=== PATIENT | female | born 1985 | race American Indian/Alaskan Native ===

== ENCOUNTER 2018-12-26 09:36 | Inpatient (IN) | payer BC, MEDICAID ==
[2018-12-26] MEDS ORDERED: LACTATED RINGERS 1,000 ML ONE (10:27)
[2018-12-26] MEDS ORDERED: REGLAN IV ONE (10:41)
[2018-12-26] MEDS ORDERED: PEPCID IV ONE (10:41)
[2018-12-26] MEDS ORDERED: BICITRA PO ONE (10:41)
[2018-12-26 10:55] LABS: Basophils % (Auto) 0.4 % (0.0-1.8); Eosinophils % (Auto) 0.3 % (0.0-4.3); Hematocrit 32.1 % (30.3-42.9); Hemoglobin 10.4 gm/dl (10.1-14.3); Lymphocytes # (Auto) 1.6 K/mm3 (1.2-5.4); Lymphocytes % (Auto) 14.9 % (13.4-35.0); Mean Corpuscular HGB Conc 32 % (30-34); Mean Corpuscular Volume 75 fl (79-97); Monocytes # (Auto) 0.8 K/mm3 (0.0-0.8); Monocytes % (Auto) 6.9 % (0.0-7.3); Platelet Count 400 K/mm3 (140-440); Red Blood Count 4.27 M/mm3 (3.65-5.03)
[2018-12-26 10:56] LABS: Red Cell Distribution Width 20.1 % (13.2-15.2)
[2018-12-26] MEDS ORDERED: PITOCin/NS 20 UNIT/1000ML DRIP 20 UNITS/1,000 ML BAG IV SCH ×3 (11:00→14:00)
[2018-12-26] MEDS ORDERED: ANCEF/STERILE WATER 2 GM/20 ML 2 GM/20 ML SYRINGE IV NR (11:00)
[2018-12-26] MEDS ORDERED: LACTATED RINGERS 1,000 ML IV SCH (11:00)
[2018-12-26] MEDS ORDERED: NARCAN 2 MG/2 ML IV PRN (11:34)
--- NOTE | 2018-12-26 11:45 | Anesthesia Consultation ---
Anesthesia Consult and Med Hx Date of service: 12/26/18 - Airway Anesthetic Teeth Evaluation: Good ROM Head & Neck: Adequate Mental/Hyoid Distance: Adequate Mallampati Class: Class II Intubation Access Assessment: Good - Pulmonary Exam CTA: Yes - Cardiac Exam Cardiac Exam: RRR - Pre-Operative Health Status ASA Pre-Surgery Classification: ASA2 Proposed Anesthetic Plan: Spinal - Pulmonary Hx Asthma: No COPD: No Hx Pneumonia: No - Cardiovascular System Hx Hypertension: No - Central Nervous System Hx Seizures: No Hx Psychiatric Problems: No - Endocrine Hx Renal Disease: No Hx End Stage Renal Disease: No Hx Hypothyroidism: No Hx Hyperthyroidism: No - Hematic Hx Anemia: Yes (hx) Hx Sickle Cell Disease: No - Other Systems Hx Alcohol Use: No
--- NOTE | 2018-12-26 11:46 | Anesthesia Day of Surgery ---
Anesthesia Day of Surgery - Day of Surgery Patient Examined: Yes Patient H&P Reviewed: Yes Patient is NPO: Yes
[2018-12-26] MEDS ORDERED: ZOFRAN ONE (11:57)
[2018-12-26] MEDS ORDERED: DEXMEDETOMIDINE IV ONE (11:57)
[2018-12-26] MEDS ORDERED: fentaNYL-BUPIV 2 MCG/ML-0.125% 200 MCG/100 ML BAG EPIDURAL SCH (12:00)
[2018-12-26] MEDS ORDERED: ANCEF/STERILE WATER 2 GM/20 ML IV ONE (12:33)
[2018-12-26] MEDS ORDERED: BENADRYL ONE (12:59)
[2018-12-26] MEDS ORDERED: TORADOL ONE (12:59)
[2018-12-26] MEDS ORDERED: DILAUDID ONE (13:08)
[2018-12-26] MEDS ORDERED: TUCKS PAD TP PRN ×2 (13:58→13:59)
[2018-12-26] MEDS ORDERED: NARCAN 0.4 MG/1 ML IV PRN ×2 (13:58→13:59)
[2018-12-26] MEDS ORDERED: LANSINOH TP PRN ×2 (13:58→13:59)
[2018-12-26] MEDS ORDERED: ANUCORT-HC PR PRN (13:59)
[2018-12-26] MEDS ORDERED: MYLICON PO PRN (13:59)
[2018-12-26] MEDS ORDERED: MORPHINE IV PRN (13:59)
[2018-12-26] MEDS ORDERED: TYLENOL PO PRN (13:59)
[2018-12-26] MEDS ORDERED: ZOFRAN IV PRN (13:59)
[2018-12-26] MEDS ORDERED: MILK OF MAGNESIA PO PRN (13:59)
[2018-12-26] MEDS ORDERED: PHENERGAN PR PRN (13:59)
[2018-12-26] MEDS ORDERED: SENOKOT PO PRN (13:59)
[2018-12-26] MEDS ORDERED: D5LR 1,000 ML IV SCH (14:00)
[2018-12-26] MEDS ORDERED: SODIUM CHLORIDE FLUSH SYRINGE 10 ML IV SCH (14:00)
--- NOTE | 2018-12-26 14:11 | History and Physical Report ---
History of Present Illness Date of examination: 12/26/18 Date of admission: 12/26/18 09:49 Chief complaint: scheduled repeat csec and salpingectomy History of present illness: 33 yo EDC 01/14/19 here for repeat csec. She has a hx of newly diagnosed DM. Patient has hx of previous csec for twins. HX of GBS + Past History Past Medical History: no pertinent history Past Surgical History: section (x1) Family/Genetic History: diabetes, hypertension, cancer (prostate) Social history: single. denies: smoking, alcohol abuse, prescription drug abuse - Obstetrical History Expected Date of Delivery: 01/14/19 Actual Gestation: 37 Week(s) 2 Day(s) : 3 Para: 2 Hx # Term Pregnancies: 2 Number of Pregnancies: 0 Spontaneous Abortions: 0 Induced : 0 Number of Living Children: 3 Medications and Allergies Allergies Allergy/AdvReac Type Severity Reaction Status Date / Time No Known Allergies Allergy Verified 05/14/18 13:31 Home Medications Medication Instructions Recorded Confirmed Last Taken Type Amoxicillin [Amoxicillin TAB] 875 mg PO BID 10 Days #20 tablet 06/14/18 Unknown Rx Ferrous Sulfate [Feosol 325 MG tab] 325 mg PO BID #30 tablet 12/26/18 Unknown Rx Ibuprofen [Motrin] 600 mg PO Q8H PRN #60 tablet 12/26/18 Unknown Rx oxyCODONE /ACETAMINOPHEN [Percocet 1 tab PO Q6HR PRN #30 tablet 12/26/18 Unknown Rx 5/325] Active Meds: Active Medications Acetaminophen (Tylenol) 650 mg PO Q4H PRN PRN Reason: Fever >100.5/[place] Acetaminophen/Hydrocodone Bitart ([place] 5/325) each PO Q6H PRN PRN Reason: Pain, Moderate (4-6) Diphtheria/Tetanus/Acell Pertussis (Boostrix) 0.5 ml IM .ONCE ONE Stop: 12/27/18 14:01 Ephedrine Sulfate (Ephedrine Sulfate) 10 mg IV Q2M PRN PRN Reason: Hypotension Ferrous Sulfate (Feosol) 325 mg PO QDAY MO Hydrocortisone Acetate (Anucort-Hc) 25 mg OK BID PRN PRN Reason: Hemorrhoids Oxytocin/Sodium Chloride (Pitocin/Ns 20 Unit/1000ml Drip) 20 units in 1,000 mls @ 0 mls/hr IV TITR MO Lactated Ringer's (Lactated Ringers) 1,000 mls @ 2,250 mls/hr IV PREOP MO Stop: 12/27/18 11:27 Cefazolin Sodium (Ancef/Sterile Water 2 Gm/20 Ml) 2 gm in 20 mls @ 80 mls/hr IV PREOP NR; Protocol Stop: 12/26/18 23:00 Fentanyl/Bupivacaine/Sodium Chlor (Fentanyl-Bupiv 2 Mcg/Ml-0.125%) 200 mcg in 100 mls @ 12 mls/hr EPIDURAL TITR MO; Protocol Oxytocin/Sodium Chloride (Pitocin/Ns 20 Unit/1000ml Drip) 20 units in 1,000 mls @ 250 mls/hr IV DIRECT MO Oxytocin/Sodium Chloride (Pitocin/Ns 20 Unit/1000ml Drip) 20 units in 1,000 mls @ 250 mls/hr IV DIRECT MO Dextrose/Lactated Ringer's (D5lr) 1,000 mls @ 125 mls/hr IV DIRECT MO Ibuprofen (Ibuprofen) 800 mg PO Q6H PRN PRN Reason: Pain, Mild (1-3) Ketorolac Tromethamine (Toradol) 30 mg IV Q6H PRN PRN Reason: Pain, Moderate (4-6) Stop: 12/31/18 13:58 Magnesium Hydroxide (Milk Of Magnesia) 30 ml PO QHS PRN PRN Reason: Constip Unrelieved By Senna Measles/Mumps/Rubella Vaccine Live (M-M-R Ii Vaccine) 0.5 ml SUB-Q .ONCE ONE Stop: 12/27/18 14:01 Morphine Sulfate (Morphine) 2 mg IV Q4H PRN PRN Reason: Pain, Moderate (4-6) Multi-Ingredient Ointment (Lansinoh) 1 applic TP PRN PRN PRN Reason: dryness/cracking Multi-Ingredient Ointment (Lansinoh) 1 applic TP PRN PRN PRN Reason: dryness/cracking Multivitamins/Iron/Calcium ( Vitamin) 1 each PO QDAY MO Naloxone HCl (Narcan 2 Mg/2 Ml) 0.2 mg IV Q5M PRN PRN Reason: Respiratory sedation Naloxone HCl (Narcan 0.4 Mg/1 Ml) 0.1 mg IV Q2MIN PRN PRN Reason: Res Rate </= 8 or 02 SAT < 92% Naloxone HCl (Narcan 0.4 Mg/1 Ml) 0.1 mg IV Q2MIN PRN PRN Reason: Res Rate </= 8 or 02 SAT < 92% Ondansetron HCl (Zofran) 4 mg IV Q8H PRN PRN Reason: Nausea And Vomiting Oxycodone/Acetaminophen (Percocet 5/325) 2 tab PO Q6H PRN PRN Reason: Pain, Moderate (4-6) Promethazine HCl (Phenergan) 25 mg OK Q6H PRN PRN Reason: N/V IF NPO AND NO IV ACCESS Senna (Senokot) 17.2 mg PO QHS PRN PRN Reason: Constipation Simethicone (Mylicon) 80 mg PO Q6H PRN PRN Reason: Gas pain Sodium Chloride (Sodium Chloride Flush Syringe 10 Ml) 10 ml IV PRN NR Witch Nohemi/Glycerin (Tucks Pad) 1 each TP PRN PRN PRN Reason: Hemorrhoids/cleansing/soothing Witch Nohemi/Glycerin (Tucks Pad) 1 each TP PRN PRN PRN Reason: Hemorrhoids/cleansing/soothing Review of Systems All systems: negative - Vital Signs Vital signs: Vital Signs Temp Pulse Resp BP 98.6 F 100 H 20 112/72 12/26/18 10:10 12/26/18 10:10 12/26/18 10:10 12/26/18 10:10 Temp Pulse Resp BP Pulse Ox 98.6 F 100 H 20 112/72 12/26/18 10:10 12/26/18 10:10 12/26/18 10:10 12/26/18 10:10 - Physical Exam Breasts: Positive: normal Cardiovascular: Regular rate, Normal S1 Lungs: Positive: Clear to auscultation, Normal air movement Abdomen: Positive: normal appearance, soft, normal bowel sounds. Negative: distention, tenderness, guarding Genitourinary (Female): Positive: normal external genitalia, normal perenium Vagina: Positive: normal moisture Uterus: Positive: normal size, normal contour Anus/Rectum: Positive: normal perianal skin Extremities: Positive: normal Deep Tendon Reflex Grade: Normal +2 - Obstetrical FHR: category 1 Results Result Diagrams: 12/26/18 10:15 Abnormal lab results 12/26/18 Range/Units 10:15 WBC 11.1 H (4.5-11.0) K/mm3 MCV 75 L (79-97) fl MCH 24 L (28-32) pg RDW 20.1 H (13.2-15.2) % Seg Neutrophils % 77.5 H (40.0-70.0) % Seg Neutrophils # 8.6 H (1.8-7.7) K/mm3 All other labs normal. Assessment and Plan A/P Term HX of DM on insulin GBS + Desires permanent sterilization discussed r/b/a which include bleeding infection, damage to pelvic and non pelvic organs, risk of hysterectomy risk of Prepare for repeat csec/ salpingectomy all questions answered
--- NOTE | 2018-12-26 14:17 | Operative Report ---
Operative Report Operative Report: DATE : 12/26/18 PREOPERATIVE DIAGNOSES: 1. Intrauterine at term. 2. Desires permanent sterilization 3. Previous POSTOPERATIVE DIAGNOSES: 1-3 CHERYL SURGEON: Ruthie Linn MD PROCEDURE PERFORMED: Repeat low-transverse section.and Salpingectomy ANESTHESIA: Epidural. ESTIMATED BLOOD LOSS: 900 mL. COMPLICATIONS: None. FINDINGS: Male infant in cephalic presentation, Breech position, weight 7pounds 4 ounces. Apgars were 8 at 1 minute and 9 at 5 minutes. Normal uterus, tubes, and ovaries were noted. INDICATIONS: The patient is a 33-year-old 3, para 2003 female, who presented to labor and delivery for scheduled csearean and tubal ligation The procedure was described to the patient in detail including possible risks of bleeding, infection, injury to surrounding organs, and possible need for further surgery. Informed consent was obtained prior to proceeding with the procedure. The patient was taken to the operating room where epidural anesthesia was found to be adequate. The patient was prepped and draped in the usual sterile fashion in the dorsal supine position with a left-solares tilt. A Pfannenstiel skin incision was made with the scalpel and carried through to the underlying layer of fascia using the Bovie. The fascia was incised in the midline and extended laterally using Nur scissors. Adin clamps were used to elevate the superior aspect of the fascial incision, which was elevated, and the underlying rectus muscles were dissected off bluntly and using Nur scissors. Attention was then turned to the inferior aspect of the fascial incision, which in similar fashion was grasped with Adin clamps, elevated, and the underlying rectus muscles were dissected off bluntly and using Nur scissors. The rectus muscles were dissected in the midline. The peritoneum was bluntly dissected, entered, and extended superiorly and inferiorly with good visualization of the bladder. The bladder blade was inserted. The vesicouterine peritoneum was identified with pickups and entered sharply using Metzenbaum scissors. This incision was extended laterally and the bladder flap was created digitally. The bladder blade was reinserted. The lower uterine segment was incised in a transverse fashion using the scalpel and extended using manual traction. Clear fluid was noted. The infant was subsequently delivered via breech procedure. The nose and mouth were bulb suctioned. The cord was clamped and cut. The was subsequently handed to the awaiting nursery nurse. Next, cord blood was obtained per the patient's request for cord blood , which took several minutes to perform. Subsequent to the collection of this blood, the placenta was removed spontaneously intact with a 3-vessel cord noted. The uterus was exteriorized and cleared of all clots and debris. The uterine incision was repaired in 2 layers using 0 chromic suture. Hemostasis was visualized. The uterus was returned to the abdomen. Surgicell and tissel used for excellent hemostasis. The pelvis was copiously irrigated. The uterine incision was reexamined and was noted to be hemostatic. The tube was stabilized using a grasper and a enseal scalpel was used to dissect the tube away from the mesosalpinx and the ovary and also used to come across the tubal insertion into the uterus. The operative site was examined and found to be hemostatic. The procedure performed on both sides. The rectus muscles were reapproximated in the midline using 3-0 Vicryl. The fascia was closed with 0 Vicryl, the subcutaneous layer was closed with 3-0 plain gut, and the skin was closed with Ryan needle. Sponge, lap, and instrument counts were correct x2. The patient was stable at the completion of the procedure and was subsequently transferred to the recovery room in stable condition.
--- NOTE | 2018-12-26 14:17 | Procedure Note ---
OB Delivery Note - Delivery Date of Delivery: 12/26/18 Surgeon: RAMESH CORONA Estimated blood loss: other (900cc) - Section Preop diagnosis: repeat Postop diagnosis: same section procedure: section Disposition: PACU Complications: none Narrative: see op note - Infant A at 1 minute: 8 at 5 minutes: 9 Gender: Male (7 pounds 4 oz)
[2018-12-26] MEDS ORDERED: DILAUDID IV PRN (14:37)
--- NOTE | 2018-12-26 14:38 | Post Anesthesia Evaluation ---
- Post Anesthesia Evaluation Patient Participated: Yes Airway Patent: Yes Stable Respiratory Function: Yes Nausea/Vomiting: No Temp > 96.8F: Yes Pain Manageable: Yes Adequeate Hydration: Yes Anesthesia Complications: No Block Receding Appropriately: Yes Patient on Ventilator: No
[2018-12-26] MEDS: DILAUDID IV PRN ×2 (14:43→14:54)
[2018-12-26] MEDS: TORADOL IV PRN ×2 (16:36→21:00)
[2018-12-26] MEDS ORDERED: D50W (25GM) Syringe IV PRN (18:21)
[2018-12-26] MEDS: HumuLIN R SUB-Q SCH (20:59)
[2018-12-27] MEDS: PERCOCET 5/325 PO PRN ×4 (00:09→21:49)
[2018-12-27] MEDS: HumuLIN R SUB-Q SCH ×4 (00:23→18:50)
[2018-12-27 01:19] LABS: Hematocrit 25.9 % (30.3-42.9); Hemoglobin 8.5 gm/dl (10.1-14.3)
[2018-12-27 01:21] LABS: Hematocrit 25.7 % (30.3-42.9); Hemoglobin 8.5 gm/dl (10.1-14.3)
[2018-12-27] MEDS: NORCO 5/325 PO PRN (04:23)
[2018-12-27] MEDS: IBUPROFEN PO PRN (11:46)
[2018-12-27] MEDS ORDERED: M-M-R II VACCINE SUB-Q ONE (14:00)
[2018-12-27] MEDS ORDERED: BOOSTRIX IM ONE (14:00)
[2018-12-27] MEDS: FEOSOL PO SCH (16:39)
[2018-12-27] MEDS: PRENATAL VITAMIN PO SCH (16:39)
--- NOTE | 2018-12-27 16:44 | Progress Note ---
Assessment and Plan A: POD#1 s/p repeat section at term, Gestational Diabetes, Morbid Obesity P: Continue routine postoperative care. Subjective - Subjective Date of service: 12/27/18 Principal diagnosis: s/p repeat at term, gestational diabetes, morbid obesity Interval history: Pt reports incisional pain that is somewhat improved by pain medication. Otherwise no complaints. Patient reports: appetite normal, voiding normally, flatus, ambulating normally, no bowel movement : in NICU Objective - Vital Signs Latest vital signs: Vital Signs Temp Pulse Resp BP BP Pulse Ox 12/27/18 16:15 98.6 F 100 H 18 135/71 99 12/27/18 10:48 97.8 F 105 H 18 106/49 97 12/27/18 04:45 98.5 F 110 H 18 104/62 99 12/27/18 02:03 98.7 F 87 18 101/45 98 12/26/18 21:29 98.7 F 75 16 122/71 100 Intake and Output 12/27/18 12/27/18 12/27/18 06:59 14:59 22:59 Output Total 800 Balance -800 Output: Urine 800 Indwelling Catheter 800 Other: Total, Output Amount 300 # Bowel Movements 0 - Exam Breasts: Present: deferred Cardiovascular: Present: Regular rate Lungs: Present: Clear to auscultation Abdomen: Present: soft (obese) Extremities: Present: edema (trace) Incision: Present: dressed - Labs Labs: Abnormal lab results 12/27/18 12/27/18 12/27/18 Range/Units 00:29 00:45 00:45 Hgb 8.5 L D 8.5 L (10.1-14.3) gm/dl Hct 25.9 L D 25.7 L (30.3-42.9) % POC Glucose 125 H (70-105) 12/27/18 Range/Units 11:58 Hgb (10.1-14.3) gm/dl Hct (30.3-42.9) % POC Glucose 109 H (70-105)
[2018-12-28] MEDS: HumuLIN R SUB-Q SCH ×3 (00:51→15:10)
[2018-12-28] MEDS: PERCOCET 5/325 PO PRN (03:54)
[2018-12-28] MEDS: NORCO 5/325 PO PRN (09:01)
[2018-12-28] MEDS: PRENATAL VITAMIN PO SCH (10:58)
[2018-12-28] MEDS: FEOSOL PO SCH (10:58)
--- NOTE | 2018-12-28 12:20 | Progress Note ---
Assessment and Plan Pt is POD2 s/p repeat c/s at term GDM, concern for pre-gestational diabetes. Accuchecks fasting and 2hr postprandial Sliding scale insulin Pt was incorrectly given 75 g Glucola last night Acute on chronic anemia Subjective - Subjective Date of service: 12/28/18 Principal diagnosis: s/p repeat at term, gestational diabetes, morbid obesity Interval history: Pt is POD2 s/p repeat c/s Patient reports: appetite normal, voiding normally, pain well controlled, flatus, ambulating normally : in NICU (Extubated, weaning from oxygen), bottle feeding Objective - Vital Signs Latest vital signs: Vital Signs Temp Pulse Resp BP BP Pulse Ox 12/28/18 09:06 98.0 F 18 120/68 12/28/18 09:00 98.0 F 111 H 18 120/68 12/28/18 00:11 98.2 F 22 122/64 12/27/18 16:15 98.6 F 100 H 18 135/71 99 - Exam Lungs: Present: Normal air movement Abdomen: Present: normal appearance, soft Uterus: Present: normal, firm, fundal height below umbilicus Extremities: Present: normal Incision: Present: dressed - Labs Labs: Abnormal lab results 12/27/18 12/27/18 12/28/18 Range/Units 00:45 18:04 00:13 Hgb 8.5 L D (10.1-14.3) gm/dl Hct 25.9 L D (30.3-42.9) % POC Glucose 113 H 159 H (70-105) 12/28/18 12/28/18 Range/Units 06:06 10:54 Hgb (10.1-14.3) gm/dl Hct (30.3-42.9) % POC Glucose 222 H 179 H (70-105)
[2018-12-28] MEDS: IBUPROFEN PO PRN ×2 (13:53→23:28)
[2018-12-29] MEDS: HumuLIN R SUB-Q SCH ×2 (06:58→11:32)
[2018-12-29 09:04] VITALS: BP 112/72
[2018-12-29] MEDS: FEOSOL PO SCH (10:10)
[2018-12-29] MEDS: NORCO 5/325 PO PRN (10:10)
[2018-12-29] MEDS: PRENATAL VITAMIN PO SCH (10:10)
--- NOTE | 2018-12-29 12:36 | Progress Note ---
Assessment and Plan Pt is POD3 s/p repeat c/s at term GDM, concern for pre-gestational diabetes. BG has been wnl since yesterday Sliding scale insulin Acute on chronic anemia- iron supplementation Discharge to home today Subjective - Subjective Date of service: 12/29/18 Principal diagnosis: s/p repeat at term, gestational diabetes, morbid obesity Interval history: Pt is POD3 s/p repeat c/s Patient reports: appetite normal, voiding normally, pain well controlled, flatus, ambulating normally : in NICU (will be discharged tomorrow) Objective - Vital Signs Latest vital signs: Vital Signs Temp Pulse Resp BP Pulse Ox 12/29/18 10:10 18 12/29/18 08:53 98.3 F 18 112/72 12/29/18 00:12 99.0 F 99 H 18 113/67 100 12/28/18 16:41 108 H 12/28/18 16:08 98.4 F 124 H 18 131/67 99 Intake and Output 12/28/18 12/29/18 12/29/18 23:59 07:59 15:59 Intake Total 540 480 Balance 540 480 Intake: Oral 420 Intake, Free Water 120 480 Other: Total, Intake Amount 420 # Voids Indwelling Catheter 2 Void 2 # Bowel Movements 0 - Exam Breasts: Present: normal Lungs: Present: Normal air movement Abdomen: Present: normal appearance, soft. Absent: distention Uterus: Present: normal, firm, fundal height below umbilicus Extremities: Present: normal Incision: Present: normal, dry, intact - Labs Labs: Abnormal lab results 12/28/18 12/28/18 Range/Units 14:57 19:13 POC Glucose 143 H 159 H (70-105)
--- NOTE | 2018-12-29 12:40 | Discharge Summary ---
Providers - Providers Date of Admission: 12/26/18 09:49 Date of discharge: 12/29/18 Attending physician: LASHONDA GARRIDO Primary care physician: LASHONDA GARRIDO Hospitalization Reason for admission: section Delivery: Procedure: repeat low transverse Incision: normal, dry, intact Other procedures: tubal ligation (salpingectomy) Discharge diagnosis: IUP at term delivered Hospital course: Pt presented for schedule repeat and salpingectomy. She was also monitored for suspected pre-gestational diabetes. Her blood glucose stabilized after being given a 75-gram Glucola. She will have follow up this week with her primary care provider. She met discharge criteria on POD3. Condition at discharge: Fair Disposition: DC-01 TO HOME OR SELFCARE Plan - Discharge Medications Prescriptions: Ferrous Sulfate [Feosol 325 MG tab] 325 mg PO BID #30 tablet Ibuprofen [Motrin] 600 mg PO Q8H PRN #60 tablet PRN Reason: Pain oxyCODONE /ACETAMINOPHEN [Percocet 5/325] 1 tab PO Q6HR PRN #30 tablet PRN Reason: Pain - Provider Discharge Summary Activity: no sex for 6 weeks, no heavy lifting 4 weeks, no strenuous exercise Diet: routine Instructions: routine Additional instructions: [] Smoking cessation referral if applicable(refer to patient education folder for contact #) [] Refer to [facility]'s [facility] Booklet Call your doctor immediately for: * Fever > 100.5 * Heavy vaginal bleeding ( >1 pad per hour) * Severe persistent headache * Shortness of breath * Reddened, hot, painful area to leg or breast * Drainage or odor from incision. * Keep incision clean and dry at all times and follow doctor's instructions regarding bathing/showering Schedule appointment with primary care provider this week. - Follow up plan Follow up: LASHONDA GARRIDO MD [Primary Care Provider] - 7 Days (Please call to schedule appointment with [facility]'s [facility] Associate. )
[2018-12-29] MEDS: IBUPROFEN PO PRN (15:27)
== END 2018-12-29 16:50 | disposition home or self-care (01) | DRG 784 ==
LOC: TRG 09:36 → APU 09:37 → TRG 09:48 → APU 09:49 → MERGE 09:49 → OB 15:29
PROVIDERS: ADMIT Obstetrics & Gynecology; ATTEND Obstetrics & Gynecology
PROC: 10D00Z1 Extraction of Products of Conception, Low, Open Approach (ICD-10-PCS; principal; 2018-12-26)
PROC: 0UB70ZZ Excision of Bilateral Fallopian Tubes, Open Approach (ICD-10-PCS; 2018-12-26)
PROC: 3E0234Z Introduction of Serum, Toxoid and Vaccine into Muscle, Percutaneous Approach (ICD-10-PCS; 2018-12-27)
DX: O34.211 Maternal care for low transverse scar from previous cesarean delivery (principal); D62 Acute posthemorrhagic anemia; O99.824 Streptococcus B carrier state complicating childbirth; Z3A.37 37 weeks gestation of pregnancy; Z37.0 Single live birth; E66.01 Morbid (severe) obesity due to excess calories; O24.424 Gestational diabetes mellitus in childbirth, insulin controlled; O99.214 Obesity complicating childbirth; O32.1XX0 Maternal care for breech presentation, not applicable or unspecified; O99.02 Anemia complicating childbirth; Z82.49 Family history of ischemic heart disease and other diseases of the circulatory system; Z83.3 Family history of diabetes mellitus; Z80.42 Family history of malignant neoplasm of prostate; Z79.899 Other long term (current) drug therapy; Z23 Encounter for immunization
CPT/HCPCS: 36415; 82947; 82962; 85014; 85018; 85025; 85027; 86592; 86706; 86762; 86850; 86900; 86901; 88302; 88307; G0378; C1765; C9250; J0690; J1170; J1200; J1815; J1885; J2405; J2590; J2765; J3490; J7120; J7121

== ENCOUNTER 2019-01-17 09:04 | Outpatient (CLI) | payer BC, MEDICAID ==
[2019-01-17] MEDS ORDERED: LIDOCAINE (4%) 40 MG/ML TOPICAL SOLN 50 ML BOTTLE TP ONE (09:30)
== END 2019-01-17 09:05 | disposition home or self-care (01) ==
LOC: WOUND 09:04
PROVIDERS: ATTEND Surgery
DX: T81.89XD Other complications of procedures, not elsewhere classified, subsequent encounter (principal); Y83.8 Other surgical procedures as the cause of abnormal reaction of the patient, or of later complication, without mention of misadventure at the time of the procedure

== ENCOUNTER 2019-01-24 09:11 | Outpatient (CLI) | payer BC, MEDICAID ==
[2019-01-24] MEDS ORDERED: LIDOCAINE (4%) 40 MG/ML TOPICAL SOLN 50 ML BOTTLE TP ONE (10:00)
== END 2019-01-24 09:12 | disposition home or self-care (01) ==
LOC: WOUND 09:11
PROVIDERS: ATTEND Surgery
DX: T81.89XD Other complications of procedures, not elsewhere classified, subsequent encounter (principal); Y83.8 Other surgical procedures as the cause of abnormal reaction of the patient, or of later complication, without mention of misadventure at the time of the procedure

== ENCOUNTER 2019-01-31 08:56 | Outpatient (CLI) | payer BC, MEDICAID ==
[2019-01-31] MEDS ORDERED: XYLOCAINE TOPICAL 4% TP ONE (09:06)
[2019-01-31] MEDS ORDERED: SILVER NITRATE TP ONE (09:06)
== END 2019-01-31 08:57 | disposition home or self-care (01) ==
LOC: WOUND 08:56
PROVIDERS: ATTEND Surgery
DX: T81.89XD Other complications of procedures, not elsewhere classified, subsequent encounter (principal); Y83.8 Other surgical procedures as the cause of abnormal reaction of the patient, or of later complication, without mention of misadventure at the time of the procedure

== ENCOUNTER 2019-02-07 08:54 | Outpatient (CLI) | payer BC, MEDICAID ==
[2019-02-07] MEDS ORDERED: XYLOCAINE TOPICAL 4% TP ONE (09:30)
== END 2019-02-07 08:55 | disposition home or self-care (01) ==
LOC: WOUND 08:54
PROVIDERS: ATTEND Surgery
DX: T81.89XD Other complications of procedures, not elsewhere classified, subsequent encounter (principal); Y83.8 Other surgical procedures as the cause of abnormal reaction of the patient, or of later complication, without mention of misadventure at the time of the procedure

== ENCOUNTER 2019-02-14 08:51 | Outpatient (CLI) | payer BC, MEDICAID ==
[2019-02-14] MEDS ORDERED: LIDOCAINE (4%) 40 MG/ML TOPICAL SOLN 50 ML BOTTLE TP ONE (09:40)
== END 2019-02-14 08:52 | disposition home or self-care (01) ==
LOC: WOUND 08:51
PROVIDERS: ATTEND Surgery
DX: T81.89XD Other complications of procedures, not elsewhere classified, subsequent encounter (principal); Y83.8 Other surgical procedures as the cause of abnormal reaction of the patient, or of later complication, without mention of misadventure at the time of the procedure

== ENCOUNTER 2019-02-21 10:02 | Outpatient (CLI) | payer BC, MEDICAID ==
[2019-02-21] MEDS ORDERED: LIDOCAINE (4%) 40 MG/ML TOPICAL SOLN 50 ML BOTTLE TP ONE (10:30)
== END 2019-02-21 10:03 | disposition home or self-care (01) ==
LOC: WOUND 10:02
PROVIDERS: ATTEND Surgery
DX: T81.89XD Other complications of procedures, not elsewhere classified, subsequent encounter (principal); Y83.8 Other surgical procedures as the cause of abnormal reaction of the patient, or of later complication, without mention of misadventure at the time of the procedure

== ENCOUNTER 2019-02-28 13:27 | Outpatient (CLI) | payer BC, MEDICAID ==
[2019-02-28] MEDS ORDERED: LIDOCAINE (4%) 40 MG/ML TOPICAL SOLN 50 ML BOTTLE TP ONE (13:37)
== END 2019-02-28 13:28 | disposition home or self-care (01) ==
LOC: WOUND 13:27
PROVIDERS: ATTEND Surgery
DX: T81.89XD Other complications of procedures, not elsewhere classified, subsequent encounter (principal); Y83.8 Other surgical procedures as the cause of abnormal reaction of the patient, or of later complication, without mention of misadventure at the time of the procedure

== ENCOUNTER 2019-03-21 13:30 | Outpatient (CLI) | payer BC, MEDICAID ==
[2019-03-21] MEDS ORDERED: LIDOCAINE (4%) 40 MG/ML TOPICAL SOLN 50 ML BOTTLE TP ONE (13:49)
== END 2019-03-21 13:31 | disposition home or self-care (01) ==
LOC: WOUND 13:30
PROVIDERS: ATTEND Surgery
DX: T81.89XD Other complications of procedures, not elsewhere classified, subsequent encounter (principal); Y83.8 Other surgical procedures as the cause of abnormal reaction of the patient, or of later complication, without mention of misadventure at the time of the procedure
CPT/HCPCS: 99214; G0463

== ENCOUNTER 2019-04-04 13:26 | Outpatient (CLI) | payer BC, MEDICAID ==
[2019-04-04] MEDS ORDERED: LIDOCAINE (4%) 40 MG/ML TOPICAL SOLN 50 ML BOTTLE TP ONE (14:47)
== END 2019-04-04 13:27 | disposition home or self-care (01) ==
LOC: WOUND 13:26
PROVIDERS: ATTEND Surgery
DX: T81.89XD Other complications of procedures, not elsewhere classified, subsequent encounter (principal); Y83.8 Other surgical procedures as the cause of abnormal reaction of the patient, or of later complication, without mention of misadventure at the time of the procedure

== ENCOUNTER 2019-06-12 12:50 | Outpatient (CLI) | payer BC, MEDICAID ==
--- NOTE | 2019-06-12 13:37 | XRay Report ---
XR spine lumbosacral 4+V INDICATION / CLINICAL INFORMATION: LOWER BACK PAIN. COMPARISON: None available. FINDINGS: BONES/JOINT(S): No acute fracture or subluxation. There is a lucent lesion in the left L5 superior ar ticular process extending into the pedicle. SOFT TISSUES: No significant abnormality. ADDITIONAL FINDINGS: None. Recommendation: Follow-up CT or MRI of the lumbar spine is recommended to evaluate the apparent left L5 posterior element lesion. Signer Name: Reagan Segura MD Signed: 06/12/2019 1:32 PM Workstation Name: [id number]
== END 2019-06-12 12:51 | disposition home or self-care (01) ==
LOC: XRAY 12:50
PROVIDERS: ATTEND Orthopaedic Surgery
DX: M54.5 Low back pain (principal)
CPT/HCPCS: 72110

== ENCOUNTER 2019-06-13 13:35 | Outpatient (CLI) | payer BC, MEDICAID | END 2019-06-13 13:36 | disposition home or self-care (01) | LOC: WOUND 13:35 | PROVIDERS: ATTEND Surgery | DX: T81.89XD Other complications of procedures, not elsewhere classified, subsequent encounter (principal); Y83.8 Other surgical procedures as the cause of abnormal reaction of the patient, or of later complication, without mention of misadventure at the time of the procedure | CPT/HCPCS: 99212; G0463 ==

== ENCOUNTER 2019-07-23 12:01 | Outpatient (CLI) | payer BC, MEDICAID ==
[2019-07-23 12:26] LABS: Basophils # (Auto) 0.1 K/mm3 (0.0-0.1); Basophils % (Auto) 0.6 % (0.0-1.8); Eosinophils # (Auto) 0.1 K/mm3 (0.0-0.4); Eosinophils % (Auto) 0.7 % (0.0-4.3); Hematocrit 35.1 % (30.3-42.9); Lymphocytes # (Auto) 1.9 K/mm3 (1.2-5.4); Lymphocytes % (Auto) 21.4 % (13.4-35.0); Mean Corpuscular HGB Conc 34 % (30-34); Mean Corpuscular Volume 72 fl (79-97); Monocytes # (Auto) 0.4 K/mm3 (0.0-0.8); Monocytes % (Auto) 4.5 % (0.0-7.3); Platelet Count 404 K/mm3 (140-440); Red Blood Count 4.86 M/mm3 (3.65-5.03); Red Cell Distribution Width 17.4 % (13.2-15.2)
[2019-07-23 12:53] LABS: Alanine Aminotransferase 10 units/L (7-56); Albumin 4.3 g/dL (3.9-5); BUN/Creatinine Ratio 13; Blood Urea Nitrogen 12 mg/dL (7-17); Calcium 9.2 mg/dL (8.4-10.2); Chol/HDL Ratio 2.87 %; HDL Cholesterol 65 mg/dL (40-59); Hemolysis Index 2; LDL Cholesterol,Direct 119 mg/dL (50-130)
== END 2019-07-23 12:02 | disposition home or self-care (01) ==
LOC: LAB 12:01
PROVIDERS: ATTEND Internal Medicine
DX: Z00.00 Encounter for general adult medical examination without abnormal findings (principal); Z13.220 Encounter for screening for lipoid disorders; Z13.29 Encounter for screening for other suspected endocrine disorder; R73.03 Prediabetes
CPT/HCPCS: 36415; 80053; 80061; 83036; 84443; 85025

== ENCOUNTER 2020-05-14 12:43 | Outpatient (CLI) | payer BC, MEDICAID ==
[2020-05-14 13:20] LABS: Basophils % (Auto) 0.3 % (0.0-1.8); Eosinophils # (Auto) 0.1 K/mm3 (0.0-0.4); Eosinophils % (Auto) 1.5 % (0.0-4.3); Hematocrit 34.1 % (30.3-42.9); Hemoglobin 11.6 gm/dl (10.1-14.3); Lymphocytes # (Auto) 2.4 K/mm3 (1.2-5.4); Lymphocytes % (Auto) 29.1 % (13.4-35.0); Mean Corpuscular HGB Conc 34 % (30-34); Mean Corpuscular Volume 74 fl (79-97); Monocytes # (Auto) 0.4 K/mm3 (0.0-0.8); Monocytes % (Auto) 5.2 % (0.0-7.3); Platelet Count 416 K/mm3 (140-440); Red Blood Count 4.62 M/mm3 (3.65-5.03)
== END 2020-05-14 12:44 | disposition home or self-care (01) ==
LOC: LAB 12:43
PROVIDERS: ATTEND Obstetrics & Gynecology
DX: Z13.1 Encounter for screening for diabetes mellitus (principal); E28.0 Estrogen excess; N92.6 Irregular menstruation, unspecified; R89.1 Abnormal level of hormones in specimens from other organs, systems and tissues
CPT/HCPCS: 36415; 83001; 83036; 84146; 84443; 84702; 85025

== ENCOUNTER 2020-05-18 11:48 | Outpatient (CLI) | payer BC, MEDICAID ==
--- NOTE | 2020-05-18 14:03 | Ultrasound Report ---
. ULTRASOUND PELVIS COMPLETE ULTRASOUND TRANSVAGINAL INDICATION / CLINICAL INFORMATION: IRREGULAR MENSTRUATION. Dysfunctional uterine bleeding TECHNIQUE: Transabdominal and Transvaginal. Duplex Color Doppler used: Yes. COMPARISON: None available FINDINGS: UTERUS: Present. - Appearance (if present): Mildly enlarged but homogeneous. - Size in cm (if present): 12.2 x 4.4 x 7.0. - Endometrial Complex (if present): Mildly atrophic. No focal mass. Thickness in cm (if measured) = 0 .2 - Mass lesions: None. - Additional findings: Small nabothian cysts are noted in the cervix. RIGHT ADNEXA: No significant ovarian cyst or mass. Normal color Doppler blood flow. 3.1 x 1.5 x 2.8 c m LEFT ADNEXA: No significant ovarian cyst or mass. Normal color Doppler blood flow. 2.4 x 1.3 x 2.4 cm URINARY BLADDER: No significant abnormality. FREE FLUID: None. ADDITIONAL FINDINGS: None. IMPRESSION: The uterus is mildly enlarged but no evidence for fibroid disease. Mild endometrial atrophy. Tiny nabothian cysts in the cervix. Signer Name: Arturo Dey Jr, MD Signed: 05/18/2020 1:58 PM Workstation Name: [id number]
== END 2020-05-18 11:49 | disposition home or self-care (01) ==
LOC: SPVWC 11:48
PROVIDERS: ATTEND Obstetrics & Gynecology
DX: D25.9 Leiomyoma of uterus, unspecified (principal); N88.8 Other specified noninflammatory disorders of cervix uteri
CPT/HCPCS: 76830; 76856

== ENCOUNTER 2021-01-26 08:56 | Outpatient (CLI) | payer MEDICAID ==
[2021-01-26 09:26] LABS: Basophils % (Auto) 0.7 % (0.0-1.8); Eosinophils # (Auto) 0.2 K/mm3 (0.0-0.4); Eosinophils % (Auto) 3.4 % (0.0-4.3); Hematocrit 34.5 % (30.3-42.9); Hemoglobin 11.3 gm/dl (10.1-14.3); Lymphocytes # (Auto) 1.8 K/mm3 (1.2-5.4); Lymphocytes % (Auto) 27.7 % (13.4-35.0); Mean Corpuscular HGB Conc 33 % (30-34); Mean Corpuscular Volume 75 fl (79-97); Monocytes # (Auto) 0.5 K/mm3 (0.0-0.8); Monocytes % (Auto) 7.9 % (0.0-7.3); Platelet Count 392 K/mm3 (140-440); Red Blood Count 4.58 M/mm3 (3.65-5.03); Red Cell Distribution Width 16.9 % (13.2-15.2)
[2021-01-26 09:49] LABS: Alanine Aminotransferase 13 units/L (7-56); Albumin 3.8 g/dL (3.9-5); BUN/Creatinine Ratio 11; Blood Urea Nitrogen 10 mg/dL (7-17); Calcium 8.7 mg/dL (8.4-10.2); Chol/HDL Ratio 3.19 %; HDL Cholesterol 52 mg/dL (40-59); Hemolysis Index 2; LDL Cholesterol,Direct 104 mg/dL (50-130)
[2021-01-29 12:23] LABS: Vitamin D, 25-OH, D2 <4 ng/mL
== END 2021-01-26 08:57 | disposition home or self-care (01) ==
LOC: LAB 08:56
PROVIDERS: ATTEND Internal Medicine
DX: Z13.29 Encounter for screening for other suspected endocrine disorder (principal); Z00.00 Encounter for general adult medical examination without abnormal findings; E11.9 Type 2 diabetes mellitus without complications; E55.9 Vitamin D deficiency, unspecified; E78.5 Hyperlipidemia, unspecified
CPT/HCPCS: 36415; 80053; 80061; 82306; 83036; 84443; 85025